=== PATIENT | male | born 1995 | race Caucasian/White ===

== ENCOUNTER 2020-01-31 10:37 | Outpatient (CLI) | payer SELFPAY ==
[2020-02-04 13:00] LABS: Patient Race White; SARS-CoV-2 RNA Undetected (Undetected); SARS-CoV-2 Specimen Source Nasal
== END 2020-01-31 10:57 ==
PROVIDERS: PCP Pediatrics; Visit Provider Pediatrics
DX: Z11.59 Encounter for screening for other viral diseases (principal)
CPT/HCPCS: U0003

== ENCOUNTER 2022-02-06 13:14 | Emergency (ER) | payer SELFPAY ==
[2022-02-06 13:20] VITALS: BP 128/71; PULSE 58; RESP 18; TEMP 36.8; O2SAT 99
--- NOTE | 2022-02-06 14:07 | ED.GENADUL_ITS ---
Discharge Plan Disposition Patient Disposition: Home Condition: Improving Discharge Details Clinical Impression: Finger laceration Primary Care Provider: Unknown,Unknown ED Provider: Jhonatan Hay Home Meds and New Rx's Prescriptions: New cephalexin 500 mg capsule 500 mg PO QID 5 Days Qty: 20 0RF No Action Hinged Knee Brace Miscellaneous Qty: 1 0RF Rx Instructions: Low-profile hinged knee brace for right knee LCL sprain acyclovir 800 mg tablet 800 mg PO BID Qty: 10 4RF Rx Instructions: use at first sign of cold sore epinephrine [EpiPen 2-Baldo] 0.3 mg/0.3 mL auto-injector 0.3 mg IM ONCE Qty: 1 2RF Rx Instructions: Give IM prn severe allergic reaction Discharge Instructions Instructions: Finger Laceration (ED) Additional Instructions: Please keep wound clean and dry. Please return to the emergency department for any worsening symptoms such as uncontrolled bleeding, or signs of infection. Your sutures will absorb on their own within 1 to 2 weeks. Medical Decision Making 27-year-old male sustained avulsion laceration/crush injury to distal aspect of second digit of right hand, 2 or 5 cm lunate in nature, hemostatic with pressure, no foreign bodies appreciated, nailbed intact, sensation capillary refill flexion and extension mechanisms intact. Likely soft tissue injury versus tuft fracture low suspicion for foreign body. No evidence of neurovascular or tendinous involvement. Will update tetanus, will provide analgesia anti-inflammatory in the form of Toradol, will perform ring block and opposed skin flap as best as possible. We will have patient follow-up for wound check 15: 32 wound explored and irrigated no foreign body, tourniquet applied, ring bl ock administered, 4 x 5-0 Vicryl simple interrupted bacitracin ointment applied, Vaseline gauze and dry gauze applied. Home care instructions and return precautions given. Will be given prescription for Keflex given industrial injury. Sign Out No HPI General Date/Time Provider Initiated Documentation: 02/06/22 13:59 . HPI Narrative: 27-year-old male presents after injuring his right index finger in a piece of machinery at work, got his finger caught between a board in the machinery, laceration/crush injury Related Data Home Medications Medication Instructions Recorded Confirmed acyclovir 800 mg tablet 800 mg PO BID #10 tabs 09/17/19 02/06/22 epinephrine 0.3 mg/0.3 mL 0.3 mg (0.3 mL) IM ONCE ##1 09/19/19 02/06/22 injection, auto-injector (EpiPen 2-Baldo) cephalexin 500 mg capsule 500 mg PO QID 5 days #20 caps 02/06/22 Previous Rx's Medication Instructions Recorded acyclovir 800 mg tablet 800 mg PO BID #10 tabs 09/17/19 epinephrine 0.3 mg/0.3 mL 0.3 mg (0.3 mL) IM ONCE ##1 09/19/19 injection, auto-injector (EpiPen 2-Baldo) cephalexin 500 mg capsule 500 mg PO QID 5 days #20 caps 02/06/22 Allergies Allergy/AdvReac Type Severity Reaction Status Date / Time shellfish derived Allergy Intermediate FACIAL Verified 02/06/22 13:23 SWELLING Sulfa (Sulfonamide Allergy Mild rash Verified 02/06/22 13:23 Antibiotics) General Stated Complaint: Laceration ELEN: 4 Review of Systems Narrative: Review of Systems Constitutional: negative Eyes: negative ENT: negative Cardiovascular: negative Respiratory: negative Gastrointestinal: negative : negative Musculoskeletal: Finger injury Skin: Finger injury Neurologic: negative Psych: negative PFSH All Active Problems (Updated 02/06/22 @ 15:34 by Jhonatan Hay MD) Finger laceration (Acute) Medical History (Updated 02/06/22 @ 15:34 by Jhonatan Hay MD) Herpes simplex Surgical History Appendectomy Family History Mother Heart disease Father Healthy adult on routine physical examination Other Diabetes ? maternal Essential hypertension MGF Personal history of malignant neoplasm MGM-bone Mental disorder paternal cousin with depression Social History Smoking/Tobacco Use Status: Never Smoking risk assessment performed?: Yes Drug use: Never Exam Narrative Exam Narrative: Physical Examination General: alert, awake, cooperative, resting comfortably, no acute distress HEENT: normocephalic, atraumatic; PERRL, EOM intact, conjunctiva normal; no nasal discharge; moist mucous membranes, oral and pharyngeal mucosa normal, tolerating secretions Neck: supple, trachea midline; full ROM Chest: normal to inspection Respiratory: normal respiratory effort, speaking in full sentences, clear to auscultation, no wheezing, rales or rhonchi Cardiac: regular rate, regular rhythm, S1S2 intact, no murmurs rubs or gallops GI: abdomen soft, non-tender, non-distended; no palpable mass or hepatosplenomegaly Skin: no lesions, rashes or trauma appreciated Neuro: AAOx3, normal speech, moving all extremities Extremities: Crush/avulsion injury to palmar aspect of second digit of right hand approximately 2.5 cm lunate in nature, nailbed intact, sensation to distal extremity intact, capillary refill and perfusion examination intact, flexion both proximally and distally intact extension intact. Psych: Appropriate mood and affect Course Vital Signs Vital signs: Vital Signs Temperature 36.8 C 02/06/22 13:20 Pulse 58 L 02/06/22 13:20 Respiratory Rate 18 02/06/22 13:20 Blood Pressure 128/71 02/06/22 13:20 Pulse Oximetry 99 02/06/22 13:20 Temperature 36.8 C 02/06/22 13:20 Temperature Source Temporal Artery Scan 02/06/22 13:20 Pulse 58 L 02/06/22 13:20 Respiratory Rate 18 02/06/22 13:20 Blood Pressure 128/71 02/06/22 13:20 Blood Pressure Position Sitting 02/06/22 13:20 Pulse Oximetry 99 02/06/22 13:20 Oxygen Delivery Method Room Air 02/06/22 13:20 Oxygen Flow Rate 0 02/06/22 13:20
[2022-02-06] MEDS: Ketorolac 15 MG/ML VIAL IM (14:36)
--- NOTE | 2022-02-06 14:45 | DI.RAD_ITS ---
Exam(s) XR FINGER RT INDEX EXAM: XR FINGER RT INDEX CLINICAL HISTORY: avulsion lacerations of distal second digit. TECHNIQUE: 2D digital imaging was performed. COMPARISON: CR LEFT HAND COMPLETE from 01/08/2014 FINDINGS: 3 views Bandage material over the distal phalanx. No evidence of fracture or dislocation. No radiopaque for eign body. No osseous lesions nor erosions. IMPRESSION: No significant osseous findings in the 2nd-index finger. DATA REPOSITORY: RADIATION DOSE DELIVERED:
== END 2022-02-06 15:48 | disposition home or self-care (01) ==
PROVIDERS: Emergency Provider Emergency Medicine
DX: S61.210A Laceration without foreign body of right index finger without damage to nail, initial encounter (principal); W31.89XA Contact with other specified machinery, initial encounter; Y99.0 Civilian activity done for income or pay
CPT/HCPCS: 12001; 90471; 96372; 99284; 73140; 99283; J1885

== ENCOUNTER 2022-03-13 15:40 | Outpatient (REF) | payer SELFPAY ==
[2022-03-17 09:43] LABS: Hepatitis B Surface Ag Negative (Negative)
[2022-03-17 10:17] LABS: HIV-1/2 Ag & Ab Screen Negative (Negative)
[2022-03-17 10:27] LABS: Hepatitis C Ab w Rflx HCV PCR Negative (Negative)
== END 2022-03-13 15:41 | disposition home or self-care (01) ==
LOC: NCHCN 15:40
PROVIDERS: Visit Provider Nurse Practitioner Family
DX: Z00.00 Encounter for general adult medical examination without abnormal findings (principal); Z11.4 Encounter for screening for human immunodeficiency virus [HIV]; Z11.59 Encounter for screening for other viral diseases
CPT/HCPCS: 86803; 87340; 87389

== ENCOUNTER 2023-10-18 13:24 | Outpatient (REF) | payer OTHER, SELFPAY ==
[2023-10-18 20:32] LABS: Abs Immature Grans 0.02 10^3/uL (0.0-0.06); Absolute Eosinophil Count 0.31 10^3/uL (0.0-0.7); Absolute Lymphocyte Count 2.19 10^3/uL (1.2-3.4); Absolute Monocyte Count 0.38 10^3/uL (0.1-0.8); Absolute Neutrophil Count 2.56 10^3/uL (1.2-6.7); Basophils % 1.8 %; Eosinophils % 5.6 %; HCT 42.3 % (40.0-50.0); HGB 14.2 g/dL (13.5-17.5); Immature Grans % 0.4 %; Lymphocytes % 39.4 %; MCH 29.8 pg (27.0-33.0); MCHC 33.6 % (32.0-36.0); MCV 89 fL (80-95); MPV 9.5 fL (8.0-11.0); Monocytes % 6.8 %; Platelet Count 245 10^3/uL (130-400); RBC 4.77 10^6/uL (4.36-5.78); RDW 11.9 % (11.8-14.1); RDW-SD 38.4 fL; WBC 5.56 10^3/uL (4.4-10.8)
[2023-10-18 20:57] LABS: ALT 20 U/L (16-63); AST 18 U/L (15-37); Albumin 4.4 g/dL (3.4-5.0); Alkaline Phosphatase 59 U/L (46-116); Anion Gap 8.3 mmol/L (3-11); BUN 11 mg/dL (7-18); Bilirubin, Total 0.61 mg/dL (0.2-1.0); CO2 29.7 mmol/L (21.0-32.0); Chloride 107 mmol/L (98-107); Estimated GFR 106.45 (mL/min/1.73m2); Glucose 106 mg/dL (74-106); Potassium 4.7 mmol/L (3.5-5.1); Sodium 145 mmol/L (136-145); TSH (W/Ref FT4) 1.52 uIU/mL (0.36-3.74); Total Protein 7.1 g/dL (6.4-8.2)
== END 2023-10-18 13:25 | disposition home or self-care (01) ==
LOC: NCHCN 13:24
PROVIDERS: PCP Nurse Practitioner Family; Visit Provider Nurse Practitioner Family
DX: R60.0 Localized edema (principal)
CPT/HCPCS: 80053; 84443; 85025

== ENCOUNTER 2024-11-16 18:25 | Outpatient (REF) | payer SELFPAY ==
[2024-11-17 09:18] LABS: Hepatitis C Ab w Rflx HCV PCR Negative (Negative)
[2024-11-17 09:40] LABS: HIV-1/2 Ag & Ab Screen Negative (Negative)
== END 2024-11-16 18:26 | disposition home or self-care (01) ==
LOC: NCHCN 18:25
PROVIDERS: PCP Nurse Practitioner Family; Visit Provider Nurse Practitioner Family
DX: Z13.9 Encounter for screening, unspecified (principal)
CPT/HCPCS: 86803; 87340; 87389